=== PATIENT | female | born 1945 | race Caucasian/White ===

== ENCOUNTER 2024-04-16 09:46 | Outpatient (RCR) | payer MEDICARE, BC, SELFPAY ==
--- NOTE | 2024-04-16 11:26 | PT.OPEX ---
PT [place] Outpatient Eval PT [facility] Outpatient Eval Start: 04/16/24 09:36 Freq: Status: Active Protocol: Document 04/16/24 09:37 MRS (Rec: 04/16/24 11:22 MRS No Response) E-signed By Nuris Turk DPT Physical Therapy Outpatient Evaluation Insurance Information Recert Due Date 07/14/24 Insurance Name [employer] Medical Diagnosis M16.12 Unilateral primary osteoarthritis, left hip Treating Diagnosis M25.552 Pain in Hip Left Z74.9 Impaired Mobility R26.2 Difficulty Walking Imaging Report Information bone on bone Referring MD Travis Aguiar MD Subjective Preferred Name Carolyn Subjective Initial subjective: Carolyn started having left hip pain in July 2023 which has progressively worsened. Carolyn noticed she started limping and decided around [place] to see Dr. Aguiar for an ortho consult. Dr. Aguiar suggested pt undergo L JAMIE at this time due to bone on bone arthritis . L JAMIE scheduled for 05/30/24. Carolyn plans on spending 1 night in hospital and then discharging to home with her . She will receive OPPT at [facility] in [place]. Aggravating factors: walking, can't walk without a limp, unable to play pickleball at her previous level, can't sleep on left side. Alleviating factors: rest PMH: OA, osteoporosis, skin allergies, food allergies, sulfa allergy Work status: retired Pt goals: To get moving again and walk without a limp Pain Comments current 1-2; at worst 6-7/ 10 Date of Last Physician Visit 03/25/24 Date of Surgery (If applicable) 05/30/24 Current Work Status Retired Precautions Treatment Precautions/Contraindications none Weight Bearing Status Weight Bear as Tolerated Therapy Limitations/Systems Review Not Limited Objective Range of Motion limited with ER coupled with flexion Strength -Knee Ext: R: /5, L: /5? -Knee Flex: R: 5, L: 06/24? -Hip Abd: R: 5/5, L: /? -Hip Add: R: 5/5, L: 06/24? -Hip Flx: R: /5, L: 4/5? Sensation/Reflexes intact Functional Test Performed & Score LEFS= 55/80 Assessment Assessment/Impression Pt presents with signs and symptoms consistent with left hip arthritis and is awaiting L JAMIE. DOS: 05/30/24. Carolyn plans to spend 1 night in the hospital and then discharge to home with her and OPPT. SHe will need a FWW for d/c. Anticipated deficits/ impairments in pain, ROM, and strength. Pt would benefit from skilled PT interventions to facilitate return to PLOF and improve strength, ROM, balance, and endurance ultimately increasing functional mobility while decreasing pain.?Recommend OPT PT treatment 2-3x/week after surgery for 8-12 weeks depending on pt progress. Primary Functional Limitations pain, impaired mobility, impaired strength, decreased ROM Plan of Care Rehabilitation Potential Excellent Rehabilitation Potential Comments Carolyn is very active at baseline Physical Therapy Goals Within this session: 1.) Pt will abide by and be able to verbalize all post- surgical restrictions to allow for adequate healing.? Coordination/Communication With Referral Source Treatment Plan/Direct Interventions Neuromuscular Re-ed, Therapeutic Activities, Therapeutic Exercises Frequency/Duration 2-3x/week for 8-12 weeks; pt is only at this clinic for pre -op evaluation. Patient Will Be Discharged From Therapy Completion of LTG(s),Skills Plateau,Independent w/HEP, Independently Progressing Evaluation Billing Untimed Code Treatment Minutes 30 PT Eval No Charge No Complexity Low Certification Information Initial Certification Date 04/16/24 Ending Certification Date 07/14/24 Provider Signature Required Yes Provider Signature Shows Agreement With POC & Medical Necessity Physician NPI Number Write NPI# Here Physician Comment/Change : Physician Signature & Date Requested Please Sign/Date Here
== END 2024-08-14 23:59 | disposition home or self-care (01) ==
PROVIDERS: PCP Internal Medicine; Visit Provider Orthopaedic Surgery
DX: Z48.89 Encounter for other specified surgical aftercare (principal); M16.12 Unilateral primary osteoarthritis, left hip; Z96.642 Presence of left artificial hip joint; Z51.89 Encounter for other specified aftercare
CPT/HCPCS: 97110; 97161; 97530

== ENCOUNTER 2024-05-30 08:34 | Day surgery (SDC) | payer MEDICARE, BC, SELFPAY ==
[2024-05-30] VITALS (22 sets, daily range): BP systolic 94–173; BP diastolic 57–104; PULSE 54–69; RESP 14–18; TEMP 35.7–36.6; O2SAT 94–99; BMI 31.4
[2024-05-30] MEDS: LACTATED RINGERS 1000 ML 1,000 ML 100 ML IV (08:45)
[2024-05-30] MEDS: CELECOXIB 200 MG CAPSULE PO (08:50)
[2024-05-30] MEDS: ACETAMINOPHEN 500 MG TABLET 1000 MG PO ×3 (08:50→21:07)
[2024-05-30] MEDS: OXYCODONE (CR) 10 MG TAB.ER.12H PO (08:50)
[2024-05-30] MEDS: SODIUM CHLORIDE 0.9 % (FLUSH) 10 ML SYRINGE IVF ×2 (09:06→23:41)
[2024-05-30] MEDS: MIDAZOLAM HCL 1 MG/ML inj IVP (09:15)
[2024-05-30] MEDS: fentaNYL 100 MCG/2 ML inj IVP (09:15)
--- NOTE | 2024-05-30 09:28 | SUR.PREOP ---
TIME?OUT:?914 PT/ziggy urñea RN/ camilo emmanuel CRNA/ epi giles CRNA?VERIFICATION?OF?SURGICAL?SITE,?PROCEDURE,?AND?CONSENT OBTAINED?PRIOR?TO?INVASIVE?PROCEDURE.
--- NOTE | 2024-05-30 09:30 | P.NB_ITS ---
Nerve Block Nerve Block Time Seen by Provider: 09:15 Date Seen: 05/30/24 Type of block requested by surgeon for post-operative analgesia: GIBSON/LFCN Side: left Time out performed: Yes Verification of patient name: Yes Verification of date of : Yes Site marking: site marked Name of person performing procedure: mantyl Continuous monitoring Was continuous monitoring of O2 sat, B/P, equipment monitor phototypesetting, recorded every 15 minutes?: Yes Procedure Checklist: sterile prep, needles and gloves Ultrasound guided. Images saved: Yes Medications given in 5ml increments after negative aspiration: Ropivicaine %: 0.5 mL: 30 Precedex (mcg): 20 Patient tolerated procedure well: Yes Block Charges Block Charge (with Pro Fee): Other Periph Nerve Block Use of Ultrasound Machine for Block: Yes- US Guidance/pain block
[2024-05-30] MEDS: CEFAZOLIN 1 GM inj IVP (10:05)
[2024-05-30] MEDS: TRANEXAMIC ACID 100 MG/ML INJ 1000 MG IV (10:05)
--- NOTE | 2024-05-30 10:09 | CRLHL7_ITS ---
For Patients: As a result of the Cures Act, medical imaging exams and procedure reports are released immediately into your electronic medical record. You may view this report before your referring provider. If you have questions, please contact your health care provider. INDICATION : Left hip arthroplasty TECHNIQUE : Fluoroscopy time 65 seconds. FINDINGS : Two intraoperative C-arm images. Intact prosthetic components. IMPRESSION : Intraoperative C-arm fluoroscopy for left hip arthroplasty Dictated by Juno Valentine MD @ 05/30/2024 3:55:37 PM (Electronically Signed)
[2024-05-30] MEDS: LACTATED RINGERS 500 ML 500 ML 125 ML IV (10:22)
--- NOTE | 2024-05-30 11:37 | CRLHL7_ITS ---
For Patients: As a result of the Cures Act, medical imaging exams and procedure reports are released immediately into your electronic medical record. You may view this report before your referring provider. If you have questions, please contact your health care provider. HISTORY: Left total hip arthroplasty. TECHNIQUE: AP pelvis and lateral view left hip. COMPARISON: 03/25/2024. FINDINGS: Intact left total hip arthroplasty. Components are appropriately seated. No fracture or dislocation. Soft tissue gas is present. IMPRESSION: 1. Intact left total hip arthroplasty. Dictated by Jose Alfredo King MD @ 05/31/2024 5:03:13 AM (Electronically Signed)
--- NOTE | 2024-05-30 11:42 | PM.ORPRC ---
Procedure Note Date of procedure: 05/30/24 Procedure: PREOPERATIVE DIAGNOSIS: Left hip osteoarthritis POSTOPERATIVE DIAGNOSIS: Left hip osteoarthritis NAME OF OPERATION: Left total hip arthroplasty SURGEON: Travis Aguiar MD HYDRAULIC REPAIRER: Tory Tapia PA-C, BRITTNEY Baez IMPLANTS: 1. [employer] [place] # 50 sector ingrowth cup 2. 32 x 50 +4 neutral polyethylene 3. Actis # 6 standard collared ingrowth stem 4. 32 + 1 cobalt chrome femoral head ANESTHESIA: Spinal ESTIMATED BLOOD LOSS: 200 cc COMPLICATIONS: None SPECIMENS: None DRAINS: None PREOPERATIVE ANTIBIOTICS: Ancef 1 g INDICATIONS: The patient is a 78-year-old with a longstanding history of severe, unrelenting left hip pain secondary to end-stage left hip osteoarthritis. Despite appropriate nonoperative management, including activity modification, use of an assist device, anti-inflammatories, [id number] pain medication, physical therapy and injections, they continue to have pain and disability. Operative intervention was offered. The risks, benefits and expected outcomes were discussed in detail. These included but were not limited to: Infection, bleeding, injury to blood vessel or nerve, venous thromboembolism. All questions were answered to their satisfaction. Use of an assistant prosecuting attorney was necessary throughout the case for patient positioning and safety, soft tissue retraction and closure. PROCEDURE: Spinal anesthesia was administered. The patient was placed supine on the [place] table. The assistant prosecuting attorney made sure the patient was properly positioned. The left hip was prepped and draped in the usual sterile fashion. The image intensifier was brought in for a perfect AP pelvis and a perfect double tear drop AP view of each hip which were used for intraoperative templating with our fluoroscopic guide. An oblique incision was made 3 cm distal and 3 cm lateral to the anterior superior iliac spine. The assistant prosecuting attorney retracted the soft tissues to protect them. Subcutaneous dissection was taken with electrocautery to the superficial fascia. The fascia was divided in line with the incision. Blunt dissection was carried medially to the tensor fascia valerio and sartorius interval. Deep dissection was carried with electrocautery. The circumflex vessels were cauterized and divided. The capsule was exposed and then divided in a T-fashion, tagged with #1 Ethibond sutures. Retractors were placed in the joint, held by the assistant prosecuting attorney. The corkscrew was placed in the femoral head. The neck cut was made in the subcapital region. We made a second neck cut more distal. The napkin ring of bone was removed. The femoral head was removed intact. Acetabular retractors were placed, held by the assistant prosecuting attorney. The labrum was sharply debrided. The capsule was released. The 43 mm reamer was used to the true medial wall. We then enlarged in 2 mm increments using the image intensifier for our reamer placement. We impacted the cup which had excellent purchase. We placed the polyethylene. Attention was then turned to the proximal femur. The limb was placed in 140 degrees of external rotation, maximum extension and adduction. A significant amount of time was spent releasing the capsule to allow us to deliver the femur into the wound and complete the femoral side safely. Retractors were held by the assistant prosecuting attorney throughout the femoral preparation. The box packer and canal finder were used. Broaches were used to a stable size. The calcar reamer was used. Trial components were placed. The hip was reduced and was found to be stable with appropriate soft tissue tension. Length and offset had been nicely restored using the image intensifier and our fluoroscopic guide. Trial components were removed. The stem was impacted. We placed the femoral head. Again, the hip was reduced and was found to be stable with appropriate soft tissue tension. Length and offset had been nicely restored. The assistant prosecuting attorney did a three minute dilute Betadine solution soak. The assistant prosecuting attorney irrigated the wound with 3 liters of normal saline via pulse lavage. The assistant prosecuting attorney repaired the anterior capsule with a #1 Vicryl and our previously placed Ethibond sutures. The assistant prosecuting attorney closed the fascia over the tensor fascia valerio with a #1 PDO Stratafix, subcutaneous tissues with 2-0 Vicryl, skin with a running 3-0 Stratafix and glue. A dry dressing was applied by the assistant prosecuting attorney. Sponge and needle counts were correct x 2. The patient tolerated the procedure well; there were no apparent complications. They were awakened and extubated in the operating room, sent to the Post-Anesthesia Care Unit in satisfactory condition. PLAN: 1. The patient will be mobilized with physical therapy, weight-bearing as tolerates 2. Xarelto x 5 days then aspirin x 30 days will be used for DVT prophylaxis 3. The patient will be discharged once medically appropriate
--- NOTE | 2024-05-30 12:15 | P.ANES_ITS ---
Anesthesia Charges Start Date/Time Anesthesia Start Date: 05/30/24 Anesthesia Start Time: 09:34 Stop Date/Time Anesthesia Stop Date: 05/30/24 Anesthesia Stop Time: 12:14 Summary Extremes of Age - Over 70 or under 1: PECAN CLEANER Coding CPT Codes CPT Codes: ANESTH HIP ARTHROPLASTY - 17458 ([id number]) P2 - PATIENT W/MILD SYST DISEASE, QZ - PECAN CLEANER SVC W/O VERIFICATION REP BY Additional Codes: Summary - Extremes of Age - Over 70 or under 1: PECAN CLEANER ([id number])
--- NOTE | 2024-05-30 12:15 | W.ANESCHARGE ---
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
[2024-05-30] MEDS: LACTATED RINGERS 1000 ML 1,000 ML 75 ML IV (13:50)
--- NOTE | 2024-05-30 15:00 | PM.IMCN1 ---
Date of Consult Consult date: 05/30/24 Requesting Physician: Orthopedics Primary Care Provider: Chrissy Quevedo MD Consult Narrative Narrative: HOSPITALIST CONSULT Procedure: Left total hip arthroplasty SURGEON: Travis Aguiar MD ANESTHESIA: Spinal ESTIMATED BLOOD LOSS: 200 cc COMPLICATIONS: None The hospital medicine team was asked by the orthopedic surgery team to manage the patient's hypothyroidism, severe migraines, and routine post-operative care. There have been no perioperative complications. I have updated and reviewed the active medical problems, past medical history, past surgical history, social history, allergies and medications in our electronic EMR. This includes a cross reference to care everywhere in [facility] and with [facility] databases. PHYSICAL EXAM: CODE STATUS: FULL CODE CONSTITUTIONAL: Conversive, good historian. A/O. Knows setting and context. VITAL SIGNS: see record. HEENT: Normocephalic, atraumatic. PERRL, EOMI, conjunctivae pink, no scleral icterus. Ears and nose externally normal. Pharynx normal. NECK: No JVD. No carotid bruit, no thyromegaly, no adenopathy. CHEST: Clear to auscultation bilaterally HEART: S1 and S2 normal. ABDOMEN: Flat, soft, nontender. Normal bowel sounds. Moderately obese. EXTREMITIES: No edema. MUSCULOSKELETAL: Left Hip: SDI; warm extremity + distal pulses, no obvious hematoma or bleeding NEURO: Cranial nerves intact. Mentation normal. Normal affect. SKIN: No rashes, petechiae, concerning changes PSYCHIATRIC: Mentation normal. INVESTIGATIONS: EMR Reviewed; Pre-OP Reviewed DISPOSITION: DVT: xarelto --> aspirin GI: [facility] Medical History (Updated 05/30/24 @ 15:23 by Kimberly Caro MD) Osteoarthritis of right shoulder ?M19.011 - Primary osteoarthritis, right shoulder (ICD-10) Migraine without aura and with status migrainosus, not intractable ?G43.001 - Migraine without aura, not intractable, with status migrainosus (ICD-10) Elevated BP without diagnosis of hypertension ?R03.0 - Elevated blood-pressure reading, without diagnosis of hypertension (ICD-10) Chronic neck pain ?M54.2 - Cervicalgia (ICD-10) ?G89.29 - Other chronic pain (ICD-10) Nonrheumatic mitral valve regurgitation ?I34.0 - Nonrheumatic mitral (valve) insufficiency (ICD-10) TIA (transient ischemic attack) ?G45.9 - Transient cerebral ischemic attack, unspecified (ICD-10) Acquired hypothyroidism ?E03.9 - Hypothyroidism, unspecified (ICD-10) Cystocele Osteoporosis ?M81.0 - Age-related osteoporosis without current pathological fracture (ICD-10) Vitamin D deficiency ?E55.9 - Vitamin D deficiency, unspecified (ICD-10) Surgical History (Updated 05/30/24 @ 15:06 by Kimberly Caro MD) S/P total left hip arthroplasty (05/30/24) ?Z96.642 - Presence of left artificial hip joint (ICD-10) H/O section ?Z98.891 - History of uterine scar from previous surgery (ICD-10) History of carpal tunnel release ?Z98.890 - Other specified postprocedural states (ICD-10) Hx of cholecystectomy ?Z90.49 - Acquired absence of other specified parts of digestive tract (ICD-10) Hx of appendectomy ?Z90.49 - Acquired absence of other specified parts of digestive tract (ICD-10) S/P left knee arthroscopy (06/08/10) ?Z98.890 - Other specified postprocedural states (ICD-10) Social History (Reviewed 03/02/22 @ 12:55 by Deisy Pratt ~ SHIP CONSTRUCTION TEACHER, SHIP CONSTRUCTION TEACHER) What is your current living situation?: I presently have a place to live Smoking Status: Never smoker Do you use any of these nicotine containing products: None Second hand tobacco smoke exposure: No How often do you have a drink containing alcohol: 2-3 times a week AUDIT-C Alcohol total score: 3 Non-prescribed substance use: denies use Caffeine: Yes Meds Home Medications and Allergies Home Medications ?Medication ?Instructions ?Recorded ?Confirmed ?Type calcium 600 mg (as 1 tab PO DAILY 01/27/22 05/30/24 History carbonate)-vitamin D3 10 mcg (400 unit) tablet levothyroxine 112 mcg tablet 112 mcg PO DAILY 01/27/22 05/30/24 History denosumab 60 mg/mL subcutaneous 60 mg subcut [id number] 10/30/23 05/30/24 History syringe (Prolia) aspirin 81 mg tablet,delayed 81 mg PO DAILY 03/25/24 05/30/24 History release cholecalciferol (vitamin D3) 50 50 mcg PO DAILY 05/30/24 05/30/24 History mcg (2,000 unit) capsule metoclopramide HCl 10 mg tablet 10 mg PO Q8H PRN nausea/vomiting 05/30/24 05/30/24 History sumatriptan succinate 50 mg tablet 50 mg PO Q2H PRN migraine 05/30/24 05/30/24 History Allergies Allergy/AdvReac Type Severity Reaction Status Date / Time alendronate sodium Allergy Nausea Verified 05/30/24 08:49 shellfish derived Allergy Verified 05/30/24 08:56 Sulfa (Sulfonamide Allergy Verified 05/30/24 08:49 Antibiotics) Exam Const: Vital Signs, click to edit/add: Vital Signs - 24 hr 05/30/24 09:02 05/30/24 09:15 05/30/24 09:20 Temperature 97.8 F Pulse Rate 66 55 L 55 L Respiratory Rate 18 16 18 Blood Pressure 161/86 H 173/83 H 150/81 H Pulse Oximetry 98 98 98 Oxygen Delivery Me thod Room Air Nasal Cannula Nasal Cannula Oxygen Flow Rate 3 3 05/30/24 12:10 05/30/24 12:15 05/30/24 12:20 Temperature 97.0 F L Pulse Rate 57 L 55 L 58 L Respiratory Rate 14 14 16 Blood Pressure 94/59 L 113/59 L 116/57 L Pulse Oximetry 98 98 99 Oxygen Delivery Me thod Room Air Room Air Room Air Oxygen Flow Rate 05/30/24 12:25 05/30/24 12:30 05/30/24 12:35 Temperature 97.1 F L Pulse Rate 55 L 55 L 54 L Respiratory Rate 16 16 16 Blood Pressure 121/76 115/63 119/63 Pulse Oximetry 99 99 99 Oxygen Delivery Me thod Room Air Room Air Room Air Oxygen Flow Rate 05/30/24 12:37 05/30/24 12:45 Temperature 96.3 F L 96.4 F L Pulse Rate 55 L 55 L Respiratory Rate 16 16 Blood Pressure 103/75 123/69 Pulse Oximetry 96 96 Oxygen Delivery Me thod Room Air Room Air Oxygen Flow Rate Assessment and Plan Assessment and plan (1) S/P total left hip arthroplasty: Problem comment: Left total hip arthroplasty (05/30/24, Dr. Aguiar) Hospital medicine team is happy to follow the patient through to discharge. We are expecting a routine postoperative course. I have reconciled home medications and completed our part of the discharge. Status: Acute (2) Migraine without aura and with status migrainosus, not intractable: Problem comment: -severe, new. has outpatient neurology eval in [place] upcoming. -presents with pain, word-finding - stroke like Status: Acute (3) Nonrheumatic mitral valve regurgitation: Status: Acute (4) Acquired hypothyroidism: Status: Acute (5) Osteoporosis: Status: Acute
[2024-05-30] MEDS: CEFAZOLIN 2 GM in 0.9 % SODIUM CHLORIDE Mini-bag 100 ML IVPB ×2 (16:11→23:40)
[2024-05-30] MEDS: HYDROmorphone 0.5 mg/0.5 ml inj IVP (16:59)
--- NOTE | 2024-05-30 18:52 | PC.NURSE ---
End of Shift: Patient pleasant and cooperative, A&O. VSS, afebrile. SpO2 maintained above 90% on RA. Patient reports pain in her left hip this shift, managed with PRN medication, see MAR. Dressing to left hip C/D/I. Tolerating regular diet. 1A with walker and gait belt.
[2024-05-30] MEDS: SENNOSIDES 1 TAB TABLET 2 TAB PO (21:07)
[2024-05-31] MEDS: OXYCODONE 5 MG TABLET PO ×2 (00:30→07:56)
[2024-05-31 03:00] VITALS: BP 134/83; PULSE 77; RESP 16; TEMP 36.3; O2SAT 97
[2024-05-31] MEDS: ACETAMINOPHEN 500 MG TABLET 1000 MG PO ×2 (03:26→08:55)
--- NOTE | 2024-05-31 04:58 | PC.NURSE ---
Shift note: Patient is doing well ambulating with A1, walker and GB. Alert and oriented. Pain has been rated between 2 and 5, increases with activities and walking. Ice pack and PRN pain medication given. Dressing site clean, dry and intact. Vitally stable. patient had difficulty sleeping.
[2024-05-31 06:21] LABS: Basophils Absolute Auto 0.01 K/uL (0.00-0.30); Basophils Percent Auto 0.1 % (0.0-3.0); Eosinophils Absolute Auto 0.05 K/uL (0.00-0.50); Eosinophils Percent Auto 0.6 % (0.0-7.0); Hematocrit 33.3 % (33.0-51.0); Hemoglobin* 10.9 gm/dL (12.0-16.0); Immature Granulocytes Abs Auto 0.01 K/uL (0.00-0.30); Immature Granulocytes Pct Auto 0.1 %; Mean Corpuscular HGB Conc 33 gm/dL (32-36); Mean Corpuscular Hemoglobin 32 pg (26-34); Mean Corpuscular Volume 98 fL (80-100); Monocytes Percent Auto 12.4 % (0.0-11.0); Neutrophils Absolute Auto 5.82 K/uL (1.7-7.0); Neutrophils Percent Auto 69.8 % (42.0-72.0); Platelet Count* 216 K/uL (140-440); RDW Coefficient of Variation % 13.1 % (11.5-15.5); Red Blood Count 3.41 m/uL (4.00-5.20); White Blood Count* 8.34 K/uL (4.50-11.00)
[2024-05-31 06:30] LABS: Slide Review Reflex No
[2024-05-31 06:41] LABS: Sodium* 132 mmol/L (135-149)
[2024-05-31 06:42] LABS: Potassium* 4.2 mmol/L (3.6-5.1)
[2024-05-31 06:45] LABS: Blood Urea Nitrogen* 12 mg/dL (7-30); Creatinine* 0.5 mg/dL (0.5-1.5); Est. Creatinine Clearance* 37.26; Estimated Glomerular Filt Rate 97 ml/min
--- NOTE | 2024-05-31 06:54 | P.ORPN_ITS ---
Subjective Subjective Time Seen by Provider: 06:30 Date Seen: 05/31/24 Principal diagnosis: Day 1 s/p left JAMIE Interval history: Carolyn is doing well and is resting comfortably in her bed. She reports she slept poorly last night and c/o a headache overnight, but reports this is normal for her. She c/o minimal left hip pain that is well managed with icing, Tylenol and oxycodone PRN. Denies postop chest pain, SOB, fever, chills, nausea, vomiting, numbness and tingling distally. Patient has not yet had a bowel movement postop, but admits to flatulence. Ortho Exam Narrative Exam Narrative: Incision/Dressing: Dressing appears clean and dry. No drainage present. Mepilex intact. Left hip appears moderately swollen but supple with no obvious erythema, fluctuance or excessive warmth. Ecchymosis present at inferior aspect of the dressing. Warmth around the wound is appropriate. Ice is being utilized as needed. CMS: Intact distally with 2+ Dorsalis pedis and Posterior Tibial pulses. 5/5 motor strength dorsal and plantar flexion. Confirmed sensation distally. Calf: Bilateral calves are supple, with no swelling, pain, tenderness, buddy thema, discoloration or coolness to the touch. Constitutional: Patient is alert and oriented x3. Patient is in no acute distress and converses without labored breathing. Patient is able to make decis ions and demonstrates good insight. Patient is pleasant and cooperative. Affect is full range and appropriate for the circumstances. Const Vital Signs, click to edit/add: Vital Signs - 24 hr 05/30/24 09:02 05/30/24 09:15 05/30/24 09:20 Temperature 97.8 F Pulse Rate 66 55 L 55 L Pulse Rate [Pulse Oximeter] Respiratory Rate 18 16 18 Blood Pressure 161/86 H 173/83 H 150/81 H Blood Pressure [Right Arm] Pulse Oximetry 98 98 98 Oxygen Delivery Method Room Air Nasal Cannula Nasal Cannula Oxygen Flow Rate 3 3 05/30/24 12:10 05/30/24 12:15 05/30/24 12:20 Temperature 97.0 F L Pulse Rate 57 L 55 L 58 L Pulse Rate [Pulse Oximeter] Respiratory Rate 14 14 16 Blood Pressure 94/59 L 113/59 L 116/57 L Blood Pressure [Right Arm] Pulse Oximetry 98 98 99 Oxygen Delivery Method Room Air Room Air Room Air Oxygen Flow Rate 05/30/24 12:25 05/30/24 12:30 05/30/24 12:35 Temperature 97.1 F L Pulse Rate 55 L 55 L 54 L Pulse Rate [Pulse Oximeter] Respiratory Rate 16 16 16 Blood Pressure 121/76 115/63 119/63 Blood Pressure [Right Arm] Pulse Oximetry 99 99 99 Oxygen Delivery Method Room Air Room Air Room Air Oxygen Flow Rate 05/30/24 12:37 05/30/24 12:45 05/30/24 13:00 Temperature 96.3 F L 96.4 F L 96.6 F L Pulse Rate 55 L 55 L 58 L Pulse Rate [Pulse Oximeter] Respiratory Rate 16 16 16 Blood Pressure 103/75 123/69 127/70 Blood Pressure [Right Arm] Pulse Oximetry 96 96 95 Oxygen Delivery Method Room Air Room Air Room Air Oxygen Flow Rate 05/30/24 13:15 05/30/24 13:30 05/30/24 14:00 Temperature 96.7 F L 97.0 F L 97.2 F L Pulse Rate 57 L 60 60 Pulse Rate [Pulse Oximeter] Respiratory Rate 16 16 16 Blood Pressure 123/104 H 137/75 126/74 Blood Pressure [Right Arm] Pulse Oximetry 97 94 95 Oxygen Delivery Method Room Air Room Air Room Air Oxygen Flow Rate 05/30/24 14:30 05/30/24 15:00 05/30/24 15:00 Temperature 97.7 F Pulse Rate 64 68 Pulse Rate [Pulse Oximeter] Respiratory Rate 16 16 16 Blood Pressure 121/68 144/92 H Blood Pressure [Right Arm] Pulse Oximetry 95 97 97 Oxygen Delivery Method Room Air Room Air Room Air Oxygen Flow Rate 05/30/24 15:00 05/30/24 16:00 05/30/24 17:00 Temperature 97.8 F 97.8 F Pulse Rate 61 69 Pulse Rate [Pulse Oximeter] Respiratory Rate 16 16 16 Blood Pressure 126/76 134/84 Blood Pressure [Right Arm] Pulse Oximetry 98 99 Oxygen Delivery Method Room Air Room Air Oxygen Flow Rate 05/30/24 18:00 05/30/24 19:00 05/30/24 22:45 Temperature 97.9 F Pulse Rate 69 Pulse Rate [Pulse Oximeter] 67 66 Respiratory Rate 16 16 Blood Pressure 141/79 H Blood Pressure [Right Arm] 125/77 Pulse Oximetry 99 96 Oxygen Delivery Method Room Air Room Air Oxygen Flow Rate 05/30/24 22:45 05/30/24 22:45 05/31/24 03:00 Temperature 97.6 F 97.4 F L Pulse Rate Pulse Rate [Pulse Oximeter] 66 77 Respiratory Rate 16 16 16 Blood Pressure Blood Pressure [Right Arm] 124/75 134/83 Pulse Oximetry 97 97 97 Oxygen Delivery Method Room Air Room Air Room Air Oxygen Flow Rate 3 Assessment and Plan Assessment and plan (1) S/P total left hip arthroplasty: Problem details: Left total hip arthroplasty (05/30/24, Dr. Aguiar) Status: Acute Assessment and Plan: - Complete 23 hour perioperative antibiotics. - PT/OT consults for education and assistance. - Weight bear as tolerated with a walker for assistance. - Prescribed analgesics as needed. Patient is content with current narcotic medications. Minimize narcotic pain medication use; wean off and discontinue as soon as possible. - DVT prophylaxis: Xarelto x 5 days followed by aspirin 81 mg BID x 30 days. Also, frequent ambulation and ankle pumps when sedentary. - Social consult for discharge planning. - Anticipate patient will be discharged to home later today if the patient remains medically stable, pain is controlled and is safe with ambulation. - Return to clinic in 1 week for a wound check. Mepilex dressing will be removed at this appointment. Remove sooner if dressing becomes saturated. Patient is scheduled to f/u with Tory Shirley PA-C on 06/07. - Return to clinic in [address] Aguiar. - Phone Orthopedics with any questions or concerns. [phone]
[2024-05-31 07:00] VITALS: BP 128/77; PULSE 76; RESP 18; TEMP 36.6; O2SAT 97
[2024-05-31] MEDS: LEVOTHYROXINE 112 MCG TABLET PO (08:55)
[2024-05-31] MEDS: SENNOSIDES 1 TAB TABLET 2 TAB PO (08:55)
[2024-05-31] MEDS: RIVAROXABAN 10 MG TABLET PO (08:55)
--- NOTE | 2024-05-31 11:35 | PC.NURSE ---
Discharge: Patient pleasant and cooperative, A&O. VSS, afebrile. SpO2 maintained above 90% on RA. Patient reports pain in her left hip, managed with PRN medication, see MAR. Tolerating regular diet. 1A with walker and gait belt. IV removed with tip intact. Discharge instructions provided, all questions answered. Discharged to home via wheelchair with spouse.
== END 2024-05-31 11:01 | disposition home or self-care (01) ==
LOC: OR 08:35 → MEDSURG 08:36
PROVIDERS: PCP Internal Medicine; Visit Provider Orthopaedic Surgery
PROC: (CPT 27130; principal; 2024-05-30 10:00)
DX: M16.12 Unilateral primary osteoarthritis, left hip (principal); G89.18 Other acute postprocedural pain; Z79.82 Long term (current) use of aspirin; I34.0 Nonrheumatic mitral (valve) insufficiency; G43.001 Migraine without aura, not intractable, with status migrainosus; M81.0 Age-related osteoporosis without current pathological fracture; E03.9 Hypothyroidism, unspecified
CPT/HCPCS: 27130; 01214; 36415; 64450; 73501; 73502; 76942; 82565; 84132; 84295; 84520; 85025; 86850; 86900; 86901; 97110; 97116; 97161; 97165; 97530; 97535; 99100; A9270; C1776; J0690; J1100; J1171; J2250; J2371; J2405; J2704; J2795; J3010; J7120